=== PATIENT | male | born 1950 | race Caucasian/White ===

== ENCOUNTER 2018-09-03 21:47 | Emergency (ER) | payer OTHER ==
[~2018-09-03] VITALS: Ht 170.2 cm; Wt 70.3 kg
[~2018-09-03 21:47] MED LIST: LIPITOR40 MG PO; PRAVACHOL10 MG
== END 2018-09-04 00:08 | disposition home or self-care (01) ==
LOC: ER 21:47
DX: S61.225A Laceration with foreign body of left ring finger without damage to nail, initial encounter (principal); W45.8XXA Other foreign body or object entering through skin, initial encounter; Y93.89 Activity, other specified; Y92.098 Other place in other non-institutional residence as the place of occurrence of the external cause; Y99.8 Other external cause status

== ENCOUNTER 2018-09-11 17:41 | Emergency (ER) | payer OTHER ==
[~2018-09-11] VITALS: Ht 170.2 cm; Wt 78.9 kg
== END 2018-09-11 19:41 | disposition home or self-care (01) ==
LOC: ER 17:41
DX: Z48.02 Encounter for removal of sutures (principal)

== ENCOUNTER 2021-03-13 23:59 | Emergency (ER) | payer OTHER ==
[~2021-03-13] VITALS: Ht 170.2 cm; Wt 79.4 kg
[2021-03-14] MEDS ORDERED: TAMSULOSIN HCL0.4 MG PO (00:44)
[2021-03-14] MEDS ORDERED: LOSARTAN POTASS25 MG PO (00:44)
[2021-03-14] MEDS ORDERED: LEVOTHYROXINE25 MC1 PO (00:44)
[2021-03-14] MEDS ORDERED: ATORVASTATIN CA40 MG PO (00:44)
== END 2021-03-14 04:29 | disposition home or self-care (01) ==
LOC: ER 23:59
DX: B34.9 Viral infection, unspecified (principal); Z03.818 Encounter for observation for suspected exposure to other biological agents ruled out